=== PATIENT | female | born 1950 | race Caucasian/White ===

== ENCOUNTER 2016-11-03 09:05 | Outpatient (CLI) | payer MEDICARE, OTHER ==
[2016-11-03 12:30] LABS: #Basophils 0.1 thou/uL (0.0-0.2); #Eosinphils 0.1 thou/uL (0.0-0.7); #Lymphocytes 1.5 thou/uL (1.20-3.40); #Monocytes 0.4 thou/uL (0.11-0.59); #Neutrophils 3.5 thou/uL (1.40-6.50); %Basophils 1.2 % (0.0-1.0); %Eosinophils 2.3 % (0.0-10.0); %Lymphocytes 27.1 % (21.0-51.0); %Monocytes 6.2 % (0.0-10.0); Hematocrit 35.9 % (36.0-47.0); Mean Platelet Volume 6.4 fL (7.4-10.4); Red Blood Cell (RBC) Count 3.58 mill/uL (4.20-5.40); White Blood Cell (WBC) Count 5.6 thou/uL (4.8-10.8)
[2016-11-03 12:44] LABS: ALT (SGPT) 14 U/L (0-55); AST (SGOT) 17 U/L (5-34); Alkaline Phosphatase 32 U/L (40-150); Anion Gap 14 mmol/L (10-20); BUN (Urea Nitrogen) 15 mg/dL (9.8-20.1); Bilirubin, Direct 0.2 mg/dL (0.1-0.3); Bilirubin, Total 0.7 mg/dL (0.2-1.2); Calc. Creatinine Clearance 0 mL/min (70-130); Calcium 9.1 mg/dL (7.8-10.44); Carbon Dioxide 23 mmol/L (23-31); Chloride 109 mmol/L (98-107); Estimated GFR-MDRD 63; LDL Cholesterol, Calculated 130 mg/dL; Protein, Total 6.6 g/dL (5.8-8.1)
[2016-11-03 12:52] LABS: Hemoglobin A1c 5.1 % (4.0-6.0)
== END 2016-11-03 09:06 | disposition home or self-care (01) ==
LOC: NAVSJIPCSP 09:05
PROVIDERS: ATTEND Family Medicine
DX: I10 Essential (primary) hypertension (principal); G62.9 Polyneuropathy, unspecified; Z79.899 Other long term (current) drug therapy
CPT/HCPCS: 36415; 80048; 80061; 80076; 83036; 84443; 85025

== ENCOUNTER 2017-03-08 09:18 | Outpatient (CLI) | payer MEDICARE, OTHER ==
[2017-03-08 13:57] LABS: #Basophils 0.1 thou/uL (0.0-0.2); #Eosinphils 0.2 thou/uL (0.0-0.7); #Lymphocytes 1.5 thou/uL (1.20-3.40); #Monocytes 0.5 thou/uL (0.11-0.59); #Neutrophils 4.1 thou/uL (1.40-6.50); %Basophils 1.1 % (0.0-1.0); %Eosinophils 2.8 % (0.0-10.0); %Lymphocytes 23.4 % (21.0-51.0); %Monocytes 7.5 % (0.0-10.0); %Neutrophils 65.2 % (42.0-75.0); Hemoglobin 12.4 g/dL (12.0-16.0); Mean Corpuscular HGB CONC 32.5 g/dL (32.0-36.0); Mean Corpuscular Hemoglobin 32.2 pg (27.0-31.0); Mean Corpuscular Volume 99.1 fl (81.0-99.0); Mean Platelet Volume 6.1 fL (7.4-10.4); Platelet Count 209 thou/uL (130-400); RBC Distribution Width 11.6 % (11.5-14.5); Red Blood Cell (RBC) Count 3.86 mill/uL (4.20-5.40); White Blood Cell (WBC) Count 6.3 thou/uL (4.8-10.8)
[2017-03-08 13:59] LABS: ALT (SGPT) 13 U/L (8-55); AST (SGOT) 18 U/L (5-34); Albumin 4.3 g/dL (3.4-4.8); Alkaline Phosphatase 34 U/L (40-150); Anion Gap 15 mmol/L (10-20); BUN (Urea Nitrogen) 18 mg/dL (9.8-20.1); Bilirubin, Direct 0.2 mg/dL (0.1-0.3); Bilirubin, Total 0.5 mg/dL (0.2-1.2); Calc. Creatinine Clearance 0 mL/min (70-130); Calcium 9.6 mg/dL (7.8-10.44); Carbon Dioxide 25 mmol/L (23-31); Cardiac Risk 4.5 (Less than 4.5); Chloride 106 mmol/L (98-107); Cholesterol 231 mg/dl (< 200 Desired); Estimated GFR-MDRD 62; Glucose 88 mg/dL (80-115); HDL Cholesterol 51 mg/dL (>60 Neg Risk); LDL Cholesterol, Calculated 150 mg/dL; Potassium 4.1 mmol/L (3.5-5.1); Protein, Total 6.5 g/dL (6.0-8.3); Sodium 142 mmol/L (136-145); Triglycerides 151 mg/dL (Less than 150)
[2017-03-08 14:30] LABS: Hemoglobin A1c 5.2 % (4.0-6.0)
== END 2017-03-08 09:19 | disposition home or self-care (01) ==
LOC: NAVSJIPCSP 09:18
PROVIDERS: ATTEND Family Medicine
DX: E78.00 Pure hypercholesterolemia, unspecified (principal); G62.9 Polyneuropathy, unspecified; I10 Essential (primary) hypertension; R06.09 Other forms of dyspnea; R06.02 Shortness of breath; Z79.899 Other long term (current) drug therapy
CPT/HCPCS: 36415; 80048; 80061; 80076; 83036; 83880; 84443; 85025

== ENCOUNTER 2022-06-23 11:27 | Outpatient (CLI) | payer MEDICARE | END 2022-06-23 11:28 | disposition home or self-care (01) | LOC: NAV RAD 11:27 | PROVIDERS: ATTEND Family Medicine | DX: S86.912A Strain of unspecified muscle(s) and tendon(s) at lower leg level, left leg, initial encounter (principal) ==